=== PATIENT | male | born 1950 | race Two or more races ===

== ENCOUNTER 2017-02-19 16:48 | Emergency (ER) | payer OTHER ==
[2017-02-19 17:04] VITALS: BMI 25.8
[2017-02-19] MEDS ORDERED: SODIUM CHLORIDE 1,000 ML IV STA (17:25)
[2017-02-19] MEDS ORDERED: PANTOPRAZOLE SODIUM 40 MG in SODIUM CHLORIDE 100 ML IVPB ONE (17:25)
--- NOTE | 2017-02-19 17:25 | PDOC ---
History of Present Illness - History of Present Illness Initial Comments: 02/19/17 22:10 Patient is a 66 year old male with significant medical hx of prostate CA and DM who is presenting to the ED with frequent bowel movements and some rectal bleeding since yesterday. Patient is accompanied by spouse who reports the patient has been having frequent bowel movements for the past two days. Today he had four episodes of stooling with some noted rectal bleeding. The patient also endorses some LLQ discomfort that he describes as "crampy" and "achy". Patient denies any fever, nausea, vomiting, or urinary complaints. Patient is a poor historian. <Jasmin Arcos - Last Filed: 02/19/17 22:09> <Mali Montes De Oca - Last Filed: 02/19/17 23:28> - General Chief Complaint: Bleeding from Anus Stated Complaint: RECTAL BLEED Time Seen by Provider: 02/19/17 17:13 Past History <Jasmin Arcos - Last Filed: 02/19/17 22:09> - Past Medical History Cancer: Yes (prostate) Diabetes: Yes - Psycho/Social/Smoking Cessation Hx Anxiety: No Suicidal Ideation: No Smoking History: Never smoked Have you smoked in the past 12 months: No Information on smoking cessation initiated: No Hx Alcohol Use: No Drug/Substance Use Hx: No Substance Use Type: None <Mali Montes De Oca - Last Filed: 02/19/17 23:28> - Past Medical History Allergies/Adverse Reactions: Allergies Allergy/AdvReac Type Severity Reaction Status Date / Time No Known Allergies Allergy Verified 02/19/17 16:54 Home Medications: Ambulatory Orders Metformin HCl 500 mg PO BID 02/19/17 Oxybutynin Chloride [Oxybutynin Chloride ER] 10 mg PO DAILY 02/19/17 Silodosin [Rapaflo] 8 mg PO DAILY 02/19/17 Sitagliptin Phosphate [Januvia] 100 mg PO DAILY 02/19/17 Review of Systems - Review of Systems Comments:: 02/19/17 22:14 CONSTITUTIONAL: Absent: fever, chills, diaphoresis, generalized weakness, malaise, loss of appetite HEENT: Absent: rhinorrhea, nasal congestion, throat pain, throat swelling, difficulty swallowing, mouth swelling, ear pain, eye pain, visual changes CARDIOVASCULAR: Absent: chest pain, syncope, palpitations, irregular heart rate, lightheadedness , peripheral edema RESPIRATORY: Absent: cough, shortness of breath, dyspnea with exertion, orthopnea, wheezing, stridor, hemoptysis GASTROINTESTINAL: Present: rectal bleeding, frequent bowel movements, LLQ pain Absent: abdominal distension, nausea, vomiting, diarrhea, constipation, melena, hematochezia GENITOURINARY: Absent: dysuria, frequency, urgency, hesitancy, hematuria, flank pain, genital pain MUSCULOSKELETAL: Absent: myalgia, arthralgia, joint swelling SKIN: Absent: rash, itching, pallor HEMATOLOGIC/IMMUNOLOGIC: Absent: easy bleeding, easy bruising, lymphadenopathy, frequent infections ENDOCRINE: Absent: unexplained weight gain, unexplained weight loss, heat intolerance, cold intolerance NEUROLOGIC: Absent: headache, focal weakness or paresthesia, dizziness, unsteady gait, seizure, mental status changes, bladder or bowel incontinence. PSYCHIATRIC: Absent: anxiety, depression, suicidal or homicidal ideation, hallucinations <Jasmin Arcos - Last Filed: 02/19/17 22:09> *Physical Exam - Vital Signs Last Vital Signs Temp Pulse Resp BP Pulse Ox 98.0 F 83 16 124/76 99 02/19/17 16:54 02/19/17 16:54 02/19/17 16:54 02/19/17 16:54 02/19/17 19:20 - Physical Exam Comments: 02/19/17 22:15 GENERAL: Well developed, well nourished. Awake and alert. No acute distress. HEENT: Normocephalic, atraumatic. PERRLA, EOMI. No conjunctival pallor. Sclera are non- icteric. Moist mucous membranes. Oropharynx is clear. NECK: Supple. Full ROM. No JVD. Carotid pulses 2+ and symmetric, without bruits. No thyromegaly. No lymphadenopathy. CARDIOVASCULAR: Regular rate and rhythm. No murmurs, rubs, or gallops. Distal pulses are 2+ and symmetric. PULMONARY: No evidence of respiratory distress. Lungs clear to auscultation bilaterally. No wheezing, rales or rhonchi. ABDOMINAL: Soft. Mild LLQ tenderness. Non-distended. No rebound or guarding. No organomegaly. Normoactive bowel sounds. MUSCULOSKELETAL: Normal range of motion at all joints. No bony deformities or tenderness. No CVA tenderness. EXTREMITIES: No cyanosis. No clubbing. No edema. No calf tenderness. SKIN: Warm and dry. Normal capillary refill. No rashes. No jaundice. NEUROLOGICAL: Alert, awake, appropriate. Cranial nerves 2-12 intact. Normal speech. Gait is normal without ataxia. PSYCHIATRIC: Cooperative. Good eye contact. Appropriate mood and affect. RECTAL: Normal exam. No blood. <Jasmin Arcos - Last Filed: 02/19/17 22:09> - Vital Signs Last Vital Signs Temp Pulse Resp BP Pulse Ox 98.0 F 83 16 124/76 99 02/19/17 16:54 02/19/17 16:54 02/19/17 16:54 02/19/17 16:54 02/19/17 16:54 <Mali Montes De Oca - Last Filed: 02/19/17 23:28> ED Treatment Course - LABORATORY CBC & Chemistry Diagram: 02/19/17 18:00 02/19/17 18:00 - ADDITIONAL ORDERS Additional order review: Laboratory Results 02/19/17 02/19/17 02/19/17 19:40 18:00 18:00 INR Sodium 137 Potassium 4.6 Chloride 99 Carbon Dioxide 29 Anion Gap 9 BUN 12 Creatinine 0.9 Creat Clearance w eGFR > 60 Random Glucose 294 H Calcium 9.5 Total Bilirubin 0.2 AST 18 ALT 32 Alkaline Phosphatase 150 H Total Protein 8.1 Albumin 4.1 Stool Occult Blood Negative Blood Type B NEGATIVE Antibody Screen Negative 02/19/17 18:00 INR 0.97 Sodium Potassium Chloride Carbon Dioxide Anion Gap BUN Creatinine Creat Clearance w eGFR Random Glucose Calcium Total Bilirubin AST ALT Alkaline Phosphatase Total Protein Albumin Stool Occult Blood Blood Type Antibody Screen 02/19/17 18:00 RBC 5.13 MCV 74.7 L MCHC 32.6 RDW 14.2 MPV 8.2 Neutrophils % 54.0 Lymphocytes % 35.0 Monocytes % 7.7 Eosinophils % 2.4 Basophils % 0.9 - Medications Given in the ED: ED Medications Discontinued Medications Generic Name Dose Route Start Last Admin Trade Name Freq PRN Reason Stop Dose Admin Pantoprazole Sodium 40 mg/ 100 mls @ 200 mls/hr 02/19/17 17:25 02/19/17 18:07 Sodium Chloride IVPB 02/19/17 17:54 200 mls/hr ONCE ONE Administration Sodium Chloride 1,000 mls @ 1,000 mls/hr 02/19/17 17:25 02/19/17 17:45 Normal Saline - IV 02/19/17 18:24 1,000 mls/hr ASDIR STA Administration <Jasmin Arcos - Last Filed: 02/19/17 22:09> - LABORATORY CBC & Chemistry Diagram: 02/19/17 18:00 02/19/17 18:00 <Mali Montes De Oca - Last Filed: 02/19/17 23:28> Medical Decision Making - Medical Decision Making 02/19/17 23:23 CT SCAN OF ABD/PEL: THERE IS NO SMALL BOWEL OBSTRUCTION -NO DIVERTICULITIS,NO ENLARGED LYMPH NODES,NO FREE LFUID ,NO FREE AIR IN ABDOMEN OR PELVIS impo RECTAL BLOOD plan F/O UP THISWEEK WITH pcp FOR gi REFERRAL <Mali Montes De Oca - Last Filed: 02/19/17 23:28> *DC/Admit/Observation/Transfer - Attestations Scribe Attestion: 02/19/17 22:16 Documentation prepared by Jasmin Arcos, acting as medical laboratory technologist for Mali Montes De Oca MD. <Jasmin Arcos - Last Filed: 02/19/17 22:09> <Mali Montes De Oca - Last Filed: 02/19/17 23:28> Diagnosis at time of Disposition: Rectal bleed - Discharge Dispostion Disposition: HOME Condition at time of disposition: Stable - Referrals Referrals: Trace Proctor MD [Staff Physician] - - Patient Instructions Printed Discharge Instructions: DI for Rectal Bleeding, DI for Hyperglycemia - - Adult Additional Instructions: PLEASE CALL YOUR DOCTOR FOR A GI REFERRAL
[2017-02-19] MEDS ORDERED: PANTOPRAZOLE SODIUM 100 ML IVPB ONE (18:04)
[2017-02-19 18:21] LABS: BASOPHIL 0.9 % (0-2.0); EOSINOPHIL 2.4 % (0-4.5); MCH 24.4 pg (25.7-33.7); MCHC 32.6 g/dl (32.0-35.9); MEAN CELL VOLUME 74.7 fl (80-96); MEAN PLT VOLUME 8.2 fl (7.5-11.1); PLATELET COUNT 276 K/MM3 (134-434); RDW 14.2 % (11.9-15.9); WHITE BLOOD COUNT 4.7 K/mm3 (4.0-10.0)
[2017-02-19 18:37] LABS: INR 0.97 (0.82-1.09); PROTHROMBIN TIME (PATIENT) 10.7 SEC (9.98-11.88)
[2017-02-19 18:47] LABS: ALBUMIN 4.1 g/dl (3.4-5.0); ANION GAP 9 (8-16); BILIRUBIN,TOTAL 0.2 mg/dL (0.2-1.0); CALCIUM 9.5 mg/dL (8.5-10.1); CO2 29 mmol/L (21-32); COCKROFT - GAULT 93.09; CREATININE 0.9 mg/dL (0.7-1.3); GLUCOSE,RANDOM 294 mg/dL (74-106); SGOT/AST 18 U/L (15-37); SGPT/ALT 32 U/L (12-78); TOT PROT 8.1 g/dl (6.4-8.2)
[2017-02-19 18:48] LABS: ALK PHOS 150 U/L (45-117)
[2017-02-19 23:38] VITALS: BP 132/74; PULSE 86; TEMP 97.8
== END 2017-02-19 23:38 | disposition home or self-care (01) ==
LOC: JER 16:48
PROC: 3E033GC Introduction of Other Therapeutic Substance into Peripheral Vein, Percutaneous Approach (ICD-10-PCS; principal; 2017-02-19)
DX: K62.5 Hemorrhage of anus and rectum (principal); E11.65 Type 2 diabetes mellitus with hyperglycemia; Z79.84 Long term (current) use of oral hypoglycemic drugs; Z85.46 Personal history of malignant neoplasm of prostate
CPT/HCPCS: 36415; 74177-TC; 80053; 82272; 85025; 85044; 85610; 86850; 86900; 86901; 99284-25; Q9967

== ENCOUNTER 2018-08-07 06:32 | Day surgery (SDC) | payer OTHER ==
[2018-08-06 16:55] VITALS: BMI 30.4
--- NOTE | 2018-08-06 17:41 | HP ---
- Patient Scheduled date of Surgery: 08/07/18 Scheduled Surgical Procedure: Phacoemulsification and cataract extraction with PCIOL Affected Eye: Right (mature) Chief Complaint (Indication for surgery): Decreased vision affecting ADLs - Ocular History Other Eye History: Other (none) Eye Medications: vigamox, prolensa Previous Eye Surgery: none - Medical History Illnesses: Diabetes, Other (BPH) Current Medications: Ambulatory Orders Oxybutynin Chloride [Oxybutynin Chloride ER] 10 mg PO DAILY 02/19/17 Silodosin [Rapaflo] 8 mg PO DAILY 02/19/17 Sitagliptin Phosphate [Januvia] 100 mg PO DAILY 02/19/17 metFORMIN HCL [Metformin HCl] 500 mg PO BID 02/19/17 Allergies/Adverse Reactions: Allergies Allergy/AdvReac Type Severity Reaction Status Date / Time No Known Allergies Allergy Verified 08/06/18 16:35 Ocular Examination - Best Corrected Visual Acuity Distance: Right eye: LP Distance: Left eye: 20/50 - External/Slit Lamp Examination Abnormalities: none - Lens Lens: 4+ NS white - Vitreous/Retina Vitreous/Retina: no view, bscan retina flate - Special Examination M - Right eye: no reflex M - Left eye: +1.00-0.75 x 086 K - Right eye: 42/42.75 x 110 K - Left eye: 42.5/43 x 037 AL - Right eye: 23.76 AL - Left eye: 23.46 IOL bag: +21.5 AUOOTO IOL sulcus: +20.5 [id number] IOL AC: +17.5 [id number] - Impression Impression: Cataract Right Eye (mature) - Plan Plan: Phacoemulsification and cataract extraction - IOL Right eye (using trypan blue) Post-hospital care will be provided in office on: 08/08/18
[~2018-08-07 06:32] MED LIST: ACETYLCHOLINE 1:100 INTRA-OCUL 20 MG/2 ML KIT IO ONE; TOBRAMYCIN/DEXAMETHASONE OPHTH. OINTMENT 1 TUBE TP ONE
[2018-08-07] MEDS ORDERED: ACETAMINOPHEN 325 MG TABLET (FP) PO PRN (06:45)
[2018-08-07] MEDS ORDERED: CIPROFLOXACIN HCL 0.3% OPHTH 2.5ML BOTTLE ONE (06:46)
[2018-08-07] MEDS ORDERED: TROPICAMIDE 1% OPHTH SOLN 15 ML BOTTLE ONE (06:47)
[2018-08-07] MEDS ORDERED: PHENYLEPHRINE 2.5% OPHTH SOLN 15 ML BOTTLE ONE (06:47)
[2018-08-07] MEDS ORDERED: KETOROLAC TROMETHAMINE 0.5% EYE DROP 1 DROP DROPS ONE (06:47)
[2018-08-07 07:10] VITALS: TEMP 97.6
[2018-08-07] MEDS ORDERED: CHONDROITIN SU A/HYALUR SOD 1 KIT ONE ×2 (07:10→08:31)
[2018-08-07] MEDS: KETOROLAC TROMETHAMINE 0.5% EYE DROP 1 DROP DROPS OP SCH ×2 (07:15→07:21)
[2018-08-07] MEDS: TROPICAMIDE 1% OPHTH SOLN 15 ML BOTTLE OP SCH ×2 (07:15→07:20)
[2018-08-07] MEDS: CIPROFLOXACIN HCL 0.3% OPHTH 2.5ML BOTTLE OP SCH ×2 (07:15→07:21)
[2018-08-07] MEDS: PHENYLEPHRINE 2.5% OPHTH SOLN 15 ML BOTTLE OP SCH ×2 (07:15→07:21)
[2018-08-07] MEDS ORDERED: TOBRAMYCIN/DEXAMETHASONE OPHTH. OINTMENT 1 TUBE ONE (07:17)
[2018-08-07] MEDS ORDERED: LIDOCAINE HCL 2% JELLY (5 ML/TUBE) ONE (07:17)
[2018-08-07] MEDS ORDERED: LIDOCAINE HCL/PF 1% SDV 5ML VIAL ONE (07:17)
[2018-08-07] MEDS ORDERED: EPINEPHrine/PF 1 MG/1 ML (1:1,000) AMPULE ONE (07:17)
[2018-08-07] MEDS ORDERED: POVIDONE-IODINE 5% OPHTHALMIC PREP 30 ML SOLUTION ONE (07:18)
--- NOTE | 2018-08-07 07:19 | HP ---
History & Physical Update - History History: No Change - Physical Physical: No Change - Assessment Assessment: No Change - Plan Plan: No Change (H and P from Dr. Cristobal reviewed from 07/31/18 no changes)
[2018-08-07] MEDS ORDERED: BUPIVACAINE HCL/PF 0.75% 10 ML VIAL ONE (07:40)
[2018-08-07] MEDS ORDERED: LIDOCAINE HCL/PF 2% SDV 5ML VIAL ONE (07:41)
[2018-08-07] MEDS ORDERED: PROPOFOL 20 ML ONE ×2 (07:55)
[2018-08-07] MEDS ORDERED: SUCCINYLCHOLINE CHLORIDE 200 MG/10 ML VIAL ONE (07:55)
[2018-08-07] MEDS ORDERED: BUPIVACAINE HCL/PF 0.75% 10 ML VIAL RB ONE (08:03)
[2018-08-07] MEDS ORDERED: LIDOCAINE HCL/PF 2% SDV 5ML VIAL INF ONE (08:03)
[2018-08-07] MEDS ORDERED: TETRACAINE 0.5% OPHTH SOLN 2 ML BOTTLE OD ONE (08:04)
[2018-08-07] MEDS ORDERED: POVIDONE-IODINE 5% OPHTHALMIC PREP 30 ML SOLUTION OD ONE (08:05)
[2018-08-07] MEDS ORDERED: TETRACAINE 0.5% OPHTH SOLN 2 ML BOTTLE ONE (08:05)
[2018-08-07] MEDS ORDERED: BSS (NA/CA/MG/K) BALANCED SALT SOLUTION OPHTH SOLN 15 ML BOTTLE OD ONE (08:13)
[2018-08-07] MEDS ORDERED: TRYPAN BLUE 0.5 ML DISP.SYRIN IO ONE (08:13)
[2018-08-07] MEDS ORDERED: EPINEPHrine/PF 1 MG/1 ML (1:1,000) AMPULE SQ ONE ×2 (08:13→08:24)
[2018-08-07] MEDS ORDERED: LIDOCAINE HCL 1% PRESERVATIVE FREE - 30ML VIAL IO ONE (08:13)
[2018-08-07] MEDS ORDERED: CHONDROITIN SU A/HYALUR SOD 1 KIT IO ONE ×2 (08:13)
[2018-08-07] MEDS ORDERED: TRYPAN BLUE 0.5 ML DISP.SYRIN ONE (08:15)
[2018-08-07] MEDS ORDERED: ACETYLCHOLINE 1:100 INTRA-OCUL 20 MG/2 ML KIT IO ONE (08:51)
[2018-08-07] MEDS ORDERED: TOBRAMYCIN/DEXAMETHASONE OPHTH. OINTMENT 1 TUBE TP ONE (09:16)
--- NOTE | 2018-08-07 09:25 | OP ---
Ophthalmology Operative Note Pre-Operative Diagnosis: Mature cataract Affected Eye: Right Operation: Other (phacoemulsification and cataract extraction , anterior vitrectomy) Findings: mature cataract , zonulysis Post-Operative Diagnosis: Same as Pre-op Airline Dispatcher: None Anesthesiologist: Sunita Rowley MD Anesthesia: Local, Retrobulbar Specimens Removed: none Estimated blood loss: < 1 cc Drains & Tubes with Location: none Operative Report Dictated: Yes
--- NOTE | 2018-08-07 12:05 | OP ---
DATE OF OPERATION: DATE OF DICTATION: 08/07/2018 PREOPERATIVE DIAGNOSIS: Mature cataract, right eye. POSTOPERATIVE DIAGNOSIS: Mature cataract, right eye. PROCEDURE: Phacoemulsification and cataract extraction, anterior vitrectomy, right eye with retained lens fragment. SURGEON: Lexi Reyna MD RAILROAD FIRER/FIREMAN: None. ANESTHESIA: Retrobulbar block. ANESTHESIOLOGIST: Sunita Rowley MD OPERATIVE PROCEDURE: Following satisfactory intravenous sedation, the patient received local anesthesia using a 50/50 mixture of lidocaine 2% and Marcaine 0.75%. A Van Lint lid block was delivered to the right eye using 4 mL of the mixture and a retrobulbar injection using 4 mL of the mixture. The patient was then prepped and draped in the usual sterile fashion so as to expose only the right eye. Ophthalmic Betadine was instilled into the inferior fornix, and the lashes were taped out of the surgical field. An eyelid speculum was placed into the right eye. A paracentesis was made in superior temporal clear cornea at the limbus. Then 1:10,000 epinephrine 1 mL was injected into the anterior chamber to improve pupillary dilation. Then an air bubble was injected into the anterior chamber, and Trypan blue was dripped on the anterior capsular edge. Viscoelastic material was instilled into the anterior chamber via the paracentesis to remove the Trypan blue. A 2.4-mm keratome was used to create the main incision in temporal clear cornea at the limbus. A continuous curvilinear capsulorrhexis was performed using a cystotome and Utrata forceps. Hyrodissection was gently performed of the lens cortex using BSS on a cannula until the nucleus was noted to be freely rotating. The phacoemulsification tip was inserted via the main wound and used to sculpt 2 perpendicular grooves into the lens nucleus. Viscoat was injected into the groove, and the nucleus cracker was used to crack the lens into 4 quadrants. When attempting to lift each quadrant out of the capsule into the iris plane, a zonulolysis appeared to be present and the nucleus tilted into the vitreous cavity and descended into the vitreous cavity. The paracentesis was widened using a 2.4-mm keratome, and the anterior vitrector was set up and used to perform an anterior vitrectomy. The wound edges were checked, and they were free of any vitreous. The pupil was constricted with Miochol, and one 10-0 nylon suture was placed over the paracentesis. A second 10-0 nylon suture was placed over the wound as the pupillary constriction was not adequate to safely place an anterior chamber intraocular lens. The wound was tested for any leakage. It was found to be watertight. The pupil was round. Tobradex ointment was placed in the eye. The speculum was removed from the eye, and a sterile dressing and shield were placed over the eye. The retina specialist was contacted, and the patient will be seen either today or tomorrow for a vitrectomy and lens removal from the vitreous cavity. LEXI REYNA M.D. [id number] MTDD
[2018-08-07 13:07] VITALS: BP 121/73; PULSE 69
== END 2018-08-07 12:25 | disposition home or self-care (01) ==
LOC: JASU-SURG 06:32
PROVIDERS: ATTEND Ophthalmology
PROC: 08RJ3JZ Replacement of Right Lens with Synthetic Substitute, Percutaneous Approach (ICD-10-PCS; principal; 2018-08-07 07:30)
DX: H25.091 Other age-related incipient cataract, right eye (principal); H27.10 Unspecified dislocation of lens
CPT/HCPCS: 82962

== ENCOUNTER 2018-08-29 12:11 | Emergency (ER) | payer OTHER ==
[2018-08-29 12:20] VITALS: BP 137/76; PULSE 85; TEMP 98.2; BMI 30.4
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
== END 2018-08-29 14:11 | disposition home or self-care (01) ==
LOC: JERFT 12:11
DX: S83.8X1A Sprain of other specified parts of right knee, initial encounter (principal); W01.0XXA Fall on same level from slipping, tripping and stumbling without subsequent striking against object, initial encounter; Y93.89 Activity, other specified; Y92.410 Unspecified street and highway as the place of occurrence of the external cause; E11.9 Type 2 diabetes mellitus without complications; Z85.46 Personal history of malignant neoplasm of prostate
CPT/HCPCS: 73562-TC-RT-FY; 99281-25